=== PATIENT | female | born 1960 | race Caucasian/White ===

== ENCOUNTER → 2021-11-14 | Outpatient (CLI) | payer MEDICARE, OTHER ==
[~2021-11-14] MED LIST: ALBUTEROL0.63 MG/3 INH; AMLODIPINE BESYL5 MG PO; ASPIRIN CHEWABL81 MG PO; BUSPIRONE HCL7.5 MG PO; FISH OIL 500 M1 EAC2 PO; FLONASE 0.05% N16 GM; NORCO 5-325 TA1 EACH PO; NOVOLIN 70100 UNIT/1 SQ; PAXIL30 MG PO; PLAVIX 75 MG TA75 MG PO; PRIMIDONE50 MG PO; PRINIVIL5 MG PO; SYNTHROID125 MCG PO; ZANTAC150 MG PO; [UNRECOGNIZED DRUG - REMARK] PO
== END ==
LOC: HEART 5 15:42
DX: R06.02 Shortness of breath (principal); R59.0 Localized enlarged lymph nodes
CPT/HCPCS: 94060; 94729